=== PATIENT | female | born 1935 | race Caucasian/White ===

== ENCOUNTER 2017-07-22 22:13 | Inpatient (IN) | payer MEDICARE ==
[~2017-07-22] VITALS: Ht 160 cm; Wt 63.4 kg
[~2017-07-22 22:13] MED LIST: BUPR300T49 PO; CARV12.543 PO; CHOL10002 PO; CLOP75TA52 PO; FENT1PAT75 TD; FLAX100013 PO; FURO-93 PO; GABA300C PO; GLIM2TAB PO; HYDR-3307 PO; LORA1TAB PO; LOSA25TA5 PO; MULT-208 PO; PANT40TA5 PO; PARO12.517 PO; POTA20TA91 PO; ROSU10TA PO; [UNRECOGNIZED DRUG - OTHER] PO
[2017-07-22 23:00] VITALS: BP 130/73
[2017-07-22] MEDS ORDERED: NITROGLYCERIN 0.4 MG BOTTLE (25 TABS) SL PRN (23:00)
[2017-07-22] MEDS ORDERED: BISACODYL 10 MG SUPP PR PRN (23:00)
[2017-07-22] MEDS ORDERED: PLEASE ENTER HEIGHT AND WEIGHT MC SCH (23:00)
[2017-07-22] MEDS ORDERED: POLYETHYLENE GLYCOL 17 GM PACKET PO PRN (23:00)
[2017-07-22] MEDS ORDERED: HEPARIN 5,000 UNITS/ML, 1ML IV ONE (23:45)
[2017-07-23] LABS: IS PT STATUS REG ER OR PRE ER? NO
[2017-07-23] MEDS: GABAPENTIN 300 MG CAPSULE PO SCH ×2 (00:33→20:52)
[2017-07-23] MEDS: AZITHROMYCIN 500 MG in SODIUM CHLORIDE 0.9% 250 ML IV SCH (00:34)
[2017-07-23] MEDS: CEFTRIAXONE PMX 1GM/50ML 50 ML IV SCH ×2 (00:34→23:49)
[2017-07-23] MEDS: INSULIN ASPART 100 UNITS/ML, PEN SQ-INSULIN SCH ×5 (00:35→21:28)
[2017-07-23] MEDS: SODIUM CHLORIDE FLUSH 10ML SYR IVF SCH ×3 (00:36→20:52)
[2017-07-23] MEDS: HEPARIN 25,000 UNITS/500ML PMX 500 ML IV PRN (00:51)
[2017-07-23 02:25] VITALS: BP 119/68
[2017-07-23 05:32] LABS: HEMATOCRIT 27.7 % (34.6-47.8); HEMOGLOBIN 9.4 g/dL (11.7-16.4)
[2017-07-23 05:35] LABS: ASPARTATE AMINO TRANSFERASE 24 U/L (15-37); BLOOD UREA NITROGEN 13 mg/dL (7-18)
[2017-07-23 05:47] LABS: IS PT STATUS REG ER OR PRE ER? NO
[2017-07-23] MEDS ORDERED: ASPIRIN 325 MG TABLET EC PO SCH (06:00)
[2017-07-23] MEDS: CARVEDILOL 12.5 MG TABLET PO SCH ×2 (06:47→17:13)
[2017-07-23 07:57] VITALS: BP 98/65
[2017-07-23] MEDS: BUPROPION SR 150 MG TABLET PO SCH (08:31)
[2017-07-23] MEDS: SENNA/DOCUSATE TABLET PO SCH (08:31)
[2017-07-23] MEDS: FENTANYL 25 MCG PATCH TD SCH (08:32)
[2017-07-23] MEDS: HEPARIN 5,000 UNITS/ML, 1ML IV PRN ×2 (08:32→15:43)
[2017-07-23] MEDS: morphine SULFATE 10 MG/ML, 1ML IVPush PRN ×4 (10:41→23:03)
[2017-07-23] MEDS ORDERED: TEMPLATE NON-FORMULARY MED. (Rosuvastatin Calcium** (Crestor**) 10 MG) HOMEMEDPO SCH (11:30)
[2017-07-23] MEDS: GLIMEPIRIDE 1 MG TABLET PO SCH (11:57)
[2017-07-23] MEDS: POTASSIUM CHLORIDE 20 MEQ TAB.ER.PRT PO SCH ×2 (11:57→14:06)
[2017-07-23 13:17] VITALS: BP 139/72
[2017-07-23] MEDS ORDERED: LORazepam 0.5MG TABLET ONE (14:01)
[2017-07-23] MEDS: LORazepam 0.5MG TABLET PO PRN ×2 (14:05→20:52)
[2017-07-23] MEDS: AMIODARONE 200 MG TABLET PO SCH (14:06)
[2017-07-23] MEDS ORDERED: FUROSEMIDE 40 MG/4 ML IV ONE (18:00)
[2017-07-23 18:39] VITALS: BP 151/71
[2017-07-23] MEDS: ATORVASTATIN 40 MG TABLET PO SCH (20:52)
[2017-07-23] MEDS ORDERED: SIMVASTATIN 40 MG TABLET PO SCH (21:00)
[2017-07-23] MEDS: CALCIUM CARBONATE 500 MG TAB.CHEW PO PRN (21:27)
[2017-07-24 00:12] VITALS: BP 109/73
[2017-07-24] MEDS: AMIODARONE 200 MG TABLET PO SCH ×3 (00:19→20:19)
[2017-07-24] MEDS: AZITHROMYCIN 500 MG in SODIUM CHLORIDE 0.9% 250 ML IV SCH (00:20)
[2017-07-24] MEDS: HEPARIN 25,000 UNITS/500ML PMX 500 ML IV PRN (04:22)
[2017-07-24 04:50] LABS: BLOOD UREA NITROGEN 12 mg/dL (7-18)
[2017-07-24] MEDS: HEPARIN 5,000 UNITS/ML, 1ML IV PRN (05:57)
[2017-07-24] MEDS: CARVEDILOL 12.5 MG TABLET PO SCH (05:59)
[2017-07-24] MEDS: BUPROPION SR 150 MG TABLET PO SCH (07:44)
[2017-07-24] MEDS: SENNA/DOCUSATE TABLET PO SCH (07:44)
[2017-07-24] MEDS: GLIMEPIRIDE 1 MG TABLET PO SCH (07:44)
[2017-07-24] MEDS: INSULIN ASPART 100 UNITS/ML, PEN SQ-INSULIN SCH ×4 (07:44→20:20)
[2017-07-24] MEDS: morphine SULFATE 10 MG/ML, 1ML IVPush PRN ×3 (07:45→15:57)
[2017-07-24] MEDS: ASPIRIN 81 MG TABLET EC PO SCH (07:45)
[2017-07-24] MEDS: SODIUM CHLORIDE FLUSH 10ML SYR IVF SCH ×2 (07:45→20:19)
[2017-07-24] MEDS ORDERED: REGADENOSON 0.4 MG/5 ML SYRINGE ONE (07:51)
[2017-07-24 08:33] VITALS: BP 98/52
[2017-07-24] MEDS: FUROSEMIDE 20 MG/2 ML IV SCH ×2 (11:31→15:56)
[2017-07-24 12:33] VITALS: BP 88/53
[2017-07-24] MEDS: APIXABAN 5 MG TABLET PO SCH ×2 (13:10→20:19)
[2017-07-24] MEDS: CALCIUM CARBONATE 500 MG TAB.CHEW PO PRN ×4 (13:17→22:42)
[2017-07-24 16:51] VITALS: BP 112/64
[2017-07-24] MEDS: CARVEDILOL 6.25 MG TABLET PO SCH (17:23)
[2017-07-24 18:52] VITALS: BP_SYST 111; BP_SYST 75; BP_DIAS 50; BP_DIAS 62
[2017-07-24] MEDS: GABAPENTIN 300 MG CAPSULE PO SCH (20:19)
[2017-07-24] MEDS: ATORVASTATIN 40 MG TABLET PO SCH (20:19)
[2017-07-24] MEDS ORDERED: APIXABAN 5 MG TABLET PO SCH (21:00)
[2017-07-24] MEDS: LORazepam 0.5MG TABLET PO PRN (21:51)
[2017-07-24] MEDS: CEFTRIAXONE PMX 1GM/50ML 50 ML IV SCH (23:55)
[2017-07-25] MEDS: AZITHROMYCIN 500 MG in SODIUM CHLORIDE 0.9% 250 ML IV SCH (01:04)
[2017-07-25 02:00] VITALS: BP 132/68
[2017-07-25] MEDS: ONDANSETRON 2MG/ML, 2ML IVPush PRN (03:28)
[2017-07-25 05:21] VITALS: BP 126/72
[2017-07-25] MEDS: CALCIUM CARBONATE 500 MG TAB.CHEW PO PRN ×3 (05:22→23:29)
[2017-07-25] MEDS: morphine SULFATE 10 MG/ML, 1ML IVPush PRN ×3 (05:22→15:44)
[2017-07-25] MEDS: ASPIRIN 81 MG TABLET EC PO SCH (05:22)
[2017-07-25] MEDS: CARVEDILOL 6.25 MG TABLET PO SCH ×2 (05:22→17:16)
[2017-07-25 05:31] LABS: HEMATOCRIT 25.5 % (34.6-47.8); HEMOGLOBIN 8.7 g/dL (11.7-16.4); WHITE BLOOD COUNT 5.8 x10^3/uL (3.4-10)
[2017-07-25 05:37] LABS: BLOOD UREA NITROGEN 19 mg/dL (7-18)
[2017-07-25 07:27] VITALS: BP 94/55
[2017-07-25] MEDS: INSULIN ASPART 100 UNITS/ML, PEN SQ-INSULIN SCH ×4 (09:34→20:43)
[2017-07-25] MEDS: FUROSEMIDE 20 MG/2 ML IV SCH ×2 (09:39→17:16)
[2017-07-25] MEDS: AMIODARONE 200 MG TABLET PO SCH ×2 (09:40→20:42)
[2017-07-25] MEDS: APIXABAN 5 MG TABLET PO SCH ×2 (09:40→20:43)
[2017-07-25] MEDS: SENNA/DOCUSATE TABLET PO SCH (09:40)
[2017-07-25] MEDS: BUPROPION SR 150 MG TABLET PO SCH (09:40)
[2017-07-25] MEDS: GLIMEPIRIDE 1 MG TABLET PO SCH (09:41)
[2017-07-25] MEDS: SODIUM CHLORIDE FLUSH 10ML SYR IVF SCH ×2 (11:39→20:42)
[2017-07-25 12:50] VITALS: BP 111/65
[2017-07-25 18:39] VITALS: BP 120/67
[2017-07-25 20:41] VITALS: BP 128/73
[2017-07-25] MEDS: GABAPENTIN 300 MG CAPSULE PO SCH (20:43)
[2017-07-25] MEDS: LORazepam 0.5MG TABLET PO PRN (20:43)
[2017-07-25] MEDS: ATORVASTATIN 40 MG TABLET PO SCH (20:43)
[2017-07-25] MEDS: HYDROcodone/APAP 10/325 MG TABLET PO PRN (23:28)
[2017-07-25] MEDS: CEFTRIAXONE PMX 1GM/50ML 50 ML IV SCH (23:50)
[2017-07-26] VITALS (10 sets, daily range): BP systolic 91–136; BP diastolic 42–73
[2017-07-26] MEDS: AZITHROMYCIN 500 MG in SODIUM CHLORIDE 0.9% 250 ML IV SCH ×2 (00:38→23:03)
[2017-07-26] MEDS: ONDANSETRON 2MG/ML, 2ML IVPush PRN (01:49)
[2017-07-26] MEDS: ASPIRIN 81 MG TABLET EC PO SCH (05:25)
[2017-07-26] MEDS: CARVEDILOL 6.25 MG TABLET PO SCH ×2 (05:25→18:03)
[2017-07-26 05:43] LABS: HEMATOCRIT 23.4 % (34.6-47.8); HEMOGLOBIN 7.9 g/dL (11.7-16.4); WHITE BLOOD COUNT 4.8 x10^3/uL (3.4-10)
[2017-07-26 05:56] LABS: BLOOD UREA NITROGEN 18 mg/dL (7-18)
[2017-07-26] MEDS: INSULIN ASPART 100 UNITS/ML, PEN SQ-INSULIN SCH ×4 (07:00→21:40)
[2017-07-26] MEDS: AMIODARONE 200 MG TABLET PO SCH ×2 (09:14→21:32)
[2017-07-26] MEDS: BUPROPION SR 150 MG TABLET PO SCH (09:14)
[2017-07-26] MEDS: SENNA/DOCUSATE TABLET PO SCH (09:15)
[2017-07-26] MEDS: SODIUM CHLORIDE FLUSH 10ML SYR IVF SCH ×2 (09:15→21:32)
[2017-07-26] MEDS: GLIMEPIRIDE 1 MG TABLET PO SCH (09:15)
[2017-07-26] MEDS: APIXABAN 5 MG TABLET PO SCH ×2 (09:15→21:32)
[2017-07-26] MEDS: FUROSEMIDE 20 MG/2 ML IV SCH ×2 (09:16→18:03)
[2017-07-26] MEDS: POLYETHYLENE GLYCOL 17 GM PACKET PO SCH (09:22)
[2017-07-26] MEDS: FENTANYL 25 MCG PATCH TD SCH (09:23)
[2017-07-26] MEDS: HYDROcodone/APAP 10/325 MG TABLET PO PRN ×3 (10:12→21:31)
[2017-07-26] MEDS: CALCIUM CARBONATE 500 MG TAB.CHEW PO PRN ×2 (11:04→21:31)
[2017-07-26] MEDS ORDERED: POTASSIUM CHLORIDE 20 MEQ TAB.ER.PRT PO ONE (15:00)
[2017-07-26] MEDS ORDERED: FUROSEMIDE 20 MG/2 ML IV ONE (15:00)
[2017-07-26] MEDS: LORazepam 0.5MG TABLET PO PRN (21:31)
[2017-07-26] MEDS: ATORVASTATIN 40 MG TABLET PO SCH (21:32)
[2017-07-26] MEDS: GABAPENTIN 300 MG CAPSULE PO SCH (21:32)
[2017-07-26] MEDS: CEFTRIAXONE PMX 1GM/50ML 50 ML IV SCH (22:11)
[2017-07-26] MEDS: morphine SULFATE 10 MG/ML, 1ML IVPush PRN (23:58)
[2017-07-27 04:52] VITALS: BP 130/68
[2017-07-27] MEDS: ASPIRIN 81 MG TABLET EC PO SCH (05:08)
[2017-07-27] MEDS: HYDROcodone/APAP 10/325 MG TABLET PO PRN ×3 (05:08→19:31)
[2017-07-27] MEDS: CARVEDILOL 6.25 MG TABLET PO SCH ×2 (05:08→17:00)
[2017-07-27 06:08] LABS: HEMATOCRIT 29.8 % (34.6-47.8); HEMOGLOBIN 10.2 g/dL (11.7-16.4); WHITE BLOOD COUNT 5.2 x10^3/uL (3.4-10)
[2017-07-27 06:16] LABS: BLOOD UREA NITROGEN 14 mg/dL (7-18)
[2017-07-27 06:49] VITALS: BP 107/59
[2017-07-27] MEDS: FUROSEMIDE 20 MG/2 ML IV SCH ×2 (07:30→17:01)
[2017-07-27] MEDS: INSULIN ASPART 100 UNITS/ML, PEN SQ-INSULIN SCH ×4 (08:00→22:20)
[2017-07-27] MEDS: SENNA/DOCUSATE TABLET PO SCH (09:00)
[2017-07-27] MEDS: POLYETHYLENE GLYCOL 17 GM PACKET PO SCH (09:00)
[2017-07-27] MEDS: SODIUM CHLORIDE FLUSH 10ML SYR IVF SCH ×2 (09:42→22:13)
[2017-07-27] MEDS: GLIMEPIRIDE 1 MG TABLET PO SCH (09:42)
[2017-07-27] MEDS: BUPROPION SR 150 MG TABLET PO SCH (09:42)
[2017-07-27] MEDS: APIXABAN 5 MG TABLET PO SCH ×2 (09:42→22:13)
[2017-07-27] MEDS: AMIODARONE 200 MG TABLET PO SCH (09:42)
[2017-07-27] MEDS: CALCIUM CARBONATE 500 MG TAB.CHEW PO PRN ×2 (11:48→15:02)
[2017-07-27] MEDS ORDERED: POTASSIUM CHLORIDE 20 MEQ TAB.ER.PRT PO ONE (12:00)
[2017-07-27 12:47] VITALS: BP 128/73
[2017-07-27 19:06] VITALS: BP 169/80
[2017-07-27] MEDS: morphine SULFATE 10 MG/ML, 1ML IVPush PRN ×2 (19:36→23:59)
[2017-07-27] MEDS: GABAPENTIN 300 MG CAPSULE PO SCH (22:13)
[2017-07-27] MEDS: ATORVASTATIN 40 MG TABLET PO SCH (22:13)
[2017-07-27] MEDS: CEFTRIAXONE PMX 1GM/50ML 50 ML IV SCH (22:14)
[2017-07-27] MEDS: LORazepam 0.5MG TABLET PO PRN (22:19)
[2017-07-27] MEDS: AZITHROMYCIN 500 MG in SODIUM CHLORIDE 0.9% 250 ML IV SCH (23:53)
[2017-07-28 01:03] VITALS: BP 102/54
[2017-07-28] MEDS: HYDROcodone/APAP 10/325 MG TABLET PO PRN ×2 (01:47→08:24)
[2017-07-28] MEDS: CARVEDILOL 6.25 MG TABLET PO SCH (06:37)
[2017-07-28] MEDS: ASPIRIN 81 MG TABLET EC PO SCH (06:37)
[2017-07-28] MEDS: INSULIN ASPART 100 UNITS/ML, PEN SQ-INSULIN SCH (07:00)
[2017-07-28 07:45] VITALS: BP 110/62
[2017-07-28] MEDS: CALCIUM CARBONATE 500 MG TAB.CHEW PO PRN (08:24)
[2017-07-28] MEDS: FUROSEMIDE 20 MG/2 ML IV SCH (08:26)
[2017-07-28] MEDS: SODIUM CHLORIDE FLUSH 10ML SYR IVF SCH (08:26)
[2017-07-28] MEDS: SENNA/DOCUSATE TABLET PO SCH (09:00)
[2017-07-28] MEDS ORDERED: AMIODARONE 200 MG TABLET PO SCH (09:00)
[2017-07-28] MEDS: POLYETHYLENE GLYCOL 17 GM PACKET PO SCH (09:00)
[2017-07-28] MEDS: GLIMEPIRIDE 1 MG TABLET PO SCH (09:22)
[2017-07-28] MEDS: LORazepam 0.5MG TABLET PO PRN (09:22)
[2017-07-28] MEDS: BUPROPION SR 150 MG TABLET PO SCH (09:22)
[2017-07-28] MEDS: APIXABAN 5 MG TABLET PO SCH (09:23)
[2017-07-28] MEDS ORDERED: AZIT500T PO (09:50)
[2017-07-28] MEDS ORDERED: POLY17PO5 PO (09:50)
[2017-07-28] MEDS ORDERED: CARV6.2512 PO (09:50)
[2017-07-28] MEDS ORDERED: CEFD300C37 PO (09:50)
[2017-07-28] MEDS ORDERED: FURO20TA3 PO (09:50)
[2017-07-28] MEDS ORDERED: ATOR40TA78 PO (09:50)
[2017-07-28] MEDS ORDERED: POTA20TA6 PO (09:50)
[2017-07-28] MEDS ORDERED: ASPI-621 PO (09:50)
[2017-07-28] MEDS ORDERED: APIX5TAB PO (09:50)
[2017-07-28] MEDS ORDERED: AMIO200T42 PO (09:50)
[2017-08-11] MEDS ORDERED: FUROSEMIDE 20 MG/2 ML IV SCH (23:00)
== END 2017-07-28 12:08 | disposition home or self-care (01) | DRG 280 ==
LOC: 5SO 22:13
PROVIDERS: ADMIT Hospitalist; ATTEND Internal Medicine
PROC: 30233N1 Transfusion of Nonautologous Red Blood Cells into Peripheral Vein, Percutaneous Approach (ICD-10-PCS; principal; 2017-07-26)
DX: I21.4 Non-ST elevation (NSTEMI) myocardial infarction (principal); E43 Unspecified severe protein-calorie malnutrition; I50.31 Acute diastolic (congestive) heart failure; J96.11 Chronic respiratory failure with hypoxia; D68.69 Other thrombophilia; E11.51 Type 2 diabetes mellitus with diabetic peripheral angiopathy without gangrene; I08.1 Rheumatic disorders of both mitral and tricuspid valves; I27.20 Pulmonary hypertension, unspecified; I48.0 Paroxysmal atrial fibrillation; D64.9 Anemia, unspecified; E11.9 Type 2 diabetes mellitus without complications; K21.9 Gastro-esophageal reflux disease without esophagitis; E78.5 Hyperlipidemia, unspecified; E87.6 Hypokalemia; F32.9 Major depressive disorder, single episode, unspecified; F41.9 Anxiety disorder, unspecified; G47.33 Obstructive sleep apnea (adult) (pediatric); G89.29 Other chronic pain; I11.0 Hypertensive heart disease with heart failure; I25.10 Atherosclerotic heart disease of native coronary artery without angina pectoris; I45.10 Unspecified right bundle-branch block; K44.9 Diaphragmatic hernia without obstruction or gangrene; K57.90 Diverticulosis of intestine, part unspecified, without perforation or abscess without bleeding; K59.00 Constipation, unspecified; M19.90 Unspecified osteoarthritis, unspecified site; Z66 Do not resuscitate; Z79.4 Long term (current) use of insulin; Z82.49 Family history of ischemic heart disease and other diseases of the circulatory system; Z83.3 Family history of diabetes mellitus; Z85.42 Personal history of malignant neoplasm of other parts of uterus; Z86.73 Personal history of transient ischemic attack (TIA), and cerebral infarction without residual deficits; Z87.891 Personal history of nicotine dependence; Z99.81 Dependence on supplemental oxygen; Z98.1 Arthrodesis status; Z95.5 Presence of coronary angioplasty implant and graft; Z90.710 Acquired absence of both cervix and uterus; Z90.49 Acquired absence of other specified parts of digestive tract; Z88.0 Allergy status to penicillin; Z88.1 Allergy status to other antibiotic agents; Z91.013 Allergy to seafood; Z91.012 Allergy to eggs; Z91.041 Radiographic dye allergy status; Z68.24 Body mass index [BMI] 24.0-24.9, adult
CPT/HCPCS: 36415; 71010; 71020; 78452; 80048; 80053; 82962; 83036; 83735; 83880; 84100; 84439; 84443; 84484; 85025; 85520; 86850; 86900; 86923; 87324; 93005; 93017; 93306; J0456; J0696; J1644; J1815; J1940; J2405; J2785; A9502; C9898; J2270; J7050; P9016

== ENCOUNTER 2018-05-08 07:14 | Emergency (ER) | payer MEDICARE ==
[~2018-05-08] VITALS: Ht 160 cm; Wt 61.8 kg
[~2018-05-08 07:14] MED LIST changes: +AMIO200T42 PO; +APIX5TAB PO; +ASPI-621 PO; +ATOR40TA78 PO; +AZIT500T PO; +CARV6.2512 PO; +CEFD300C37 PO; +FURO20TA3 PO; -LOSA25TA5 PO; +LOSA25TA6 PO; +POLY17PO5 PO; +POTA20TA6 PO
[2018-05-08] MEDS ORDERED: MORPHINE SULFATE 4 MG/ML, 1ML IVPush PRN (08:00)
[2018-05-08] MEDS ORDERED: MORPHINE SULFATE 4 MG/ML, 1ML ONE (08:23)
[2018-05-08 08:32] LABS: BASOPHILS # (AUTO) 0.02 x10^3/uL (0-0.1); BASOPHILS % (AUTO) 0 % (0-1); EOSINOPHILS % (AUTO) 0 % (1-7); LYMPHOCYTES # (AUTO) 1.14 x10^3/uL (1-3.4); LYMPHOCYTES % (AUTO) 16 % (22-44); MD NO; MEAN CORPUSCULAR HEMOGLOBIN 29.3 pg (27.0-34.8); MEAN CORPUSCULAR VOLUME 88.7 fL (80-100); MEAN PLATELET VOLUME 9.6 fL (7.4-10.4); MONOCYTES # (AUTO) 0.51 x10^3/uL (0.2-0.8); MONOCYTES % (AUTO) 7 % (2-9); NEUTROPHILS # (AUTO) 5.47 x10^3/uL (1.8-6.8); NEUTROPHILS % (AUTO) 77 % (42-75); PLATELET COUNT 202 x10^3/uL (130-400); RED BLOOD COUNT 4.33 x10^6/uL (3.82-5.3); RED CELL DISTRIBUTION WIDTH 14.7 % (9.6-15.2)
[2018-05-08 08:44] LABS: ALANINE AMINOTRANSFERASE 21 U/L (12-78); ALBUMIN 3.8 g/dL (3.4-5.0); ANION GAP 9 mmol/L (5-15); CALCIUM 9.4 mg/dL (8.5-10.1); CHLORIDE 101 mmol/L (98-107); CREATININE 1.07 mg/dL (0.55-1.02)
[2018-05-08 08:46] LABS: ALKALINE PHOSPHATASE 85 U/L (45-117); BILIRUBIN,TOTAL 0.4 mg/dL (0.2-1.0); TOTAL PROTEIN 8.4 g/dL (6.4-8.2)
[2018-05-08] MEDS ORDERED: SODIUM CHLORIDE 0.9% 1,000ML IVBOLUS ONE (09:00)
[2018-05-08 09:58] LABS: MICROSCOPIC AUTO
[2018-05-08 10:19] LABS: CLOSTRIDIUM DIFFICILE ANTIGEN NEGATIVE; CLOSTRIDIUM DIFFICILE TOXIN NEGATIVE (Negative)
[2018-05-08 10:33] LABS: CULTURE INDICATED? NO
[2018-05-08 11:08] VITALS: BP 102/63
== END 2018-05-08 11:10 | disposition home or self-care (01) ==
LOC: ED 10:06
DX: R19.7 Diarrhea, unspecified (principal); T36.1X5A Adverse effect of cephalosporins and other beta-lactam antibiotics, initial encounter; E11.9 Type 2 diabetes mellitus without complications; Y92.89 Other specified places as the place of occurrence of the external cause; Z87.891 Personal history of nicotine dependence; Z88.0 Allergy status to penicillin; Z91.013 Allergy to seafood; Z88.8 Allergy status to other drugs, medicaments and biological substances; Z88.5 Allergy status to narcotic agent; Z91.041 Radiographic dye allergy status
CPT/HCPCS: 36415; 80053; 81001; 83690; 85025; 87324; 89055; 96361; 96374; 99285; J7030

== ENCOUNTER 2020-07-01 13:19 | Day surgery (SDC) | payer MEDICARE ==
[~2020-07-01] VITALS: Ht 160 cm; Wt 59.9 kg
[~2020-07-01 13:19] MED LIST changes: +ALBUTEROL 90 MCG INH; -ASPI-621 PO; +ASPI81TA45 PO; +BUPR300T94 PO; +DILT240C81 PO; +GABA-826 PO; +GLIM2TAB7 PO; +HYDR-3245 PO; +HYDR-3246 PO; -HYDR-3307 PO; +LISI-424 PO; +LOSA25TA25 PO; -LOSA25TA6 PO; +ONDA8TAB9 PO; -PANT40TA5 PO; +PANT40TA6 PO; +REPA1TAB6 PO; -ROSU10TA PO; +ROSU10TA2 PO; +ROSU20TA29 PO
[2020-07-01 14:02] VITALS: BP 148/58
[2020-07-01] MEDS ORDERED: FURO-93 PO (14:06)
[2020-07-01] MEDS ORDERED: LACTATED RINGERS 1,000 ML IV SCH (14:30)
[2020-07-01] MEDS ORDERED: VISIPAQUE 270 MG/ML, 50ML BOTTLE ONE (15:00)
[2020-07-01] MEDS ORDERED: MIDAZOLAM 1 MG/ML, 5ML ONE (15:45)
[2020-07-01] MEDS ORDERED: HEPARIN 1,000 UNITS/ML, 10ML ONE (15:45)
[2020-07-01] MEDS ORDERED: FENTANYL PF 100 MCG/2ML ONE ×2 (15:45)
[2020-07-01] MEDS ORDERED: FLUMAZENIL 0.1 MG/1 ML, 5ML ONE (15:45)
[2020-07-01] MEDS ORDERED: PROTAMINE SULFATE 10 MG/ML, 25ML ONE (15:46)
[2020-07-01] MEDS ORDERED: NALOXONE 1 MG/ML, 2ML ONE (15:46)
[2020-07-01] MEDS ORDERED: LIDOCAINE 1%, 10ML ONE (15:55)
== END 2020-07-01 18:45 | disposition home or self-care (01) ==
LOC: OUT 13:19
PROVIDERS: ATTEND Surgery
DX: I77.1 Stricture of artery (principal); I65.23 Occlusion and stenosis of bilateral carotid arteries; I70.8 Atherosclerosis of other arteries; I48.91 Unspecified atrial fibrillation; I11.0 Hypertensive heart disease with heart failure; I50.9 Heart failure, unspecified; E11.9 Type 2 diabetes mellitus without complications; E78.5 Hyperlipidemia, unspecified; Z79.82 Long term (current) use of aspirin; Z79.84 Long term (current) use of oral hypoglycemic drugs; Z79.899 Other long term (current) drug therapy; Z87.891 Personal history of nicotine dependence; Z88.0 Allergy status to penicillin; Z88.8 Allergy status to other drugs, medicaments and biological substances; Z91.012 Allergy to eggs; Z91.041 Radiographic dye allergy status; Z90.49 Acquired absence of other specified parts of digestive tract; Z90.710 Acquired absence of both cervix and uterus; Z98.890 Other specified postprocedural states; Z83.3 Family history of diabetes mellitus; Z82.49 Family history of ischemic heart disease and other diseases of the circulatory system
CPT/HCPCS: 36225; 75710; 87635; 99156; 99157; C1751; C1769; C1894; J2250; J3010; J7120; Q9966; J1644; J2720; J2310